=== PATIENT | female | born 1970 | race Caucasian/White ===

== ENCOUNTER 2022-02-25 13:05 | Inpatient (IN) | payer MEDICARE, BC ==
[~2022-02-25] VITALS: Ht 160 cm; Wt 103.0 kg
[2022-02-25] MEDS ORDERED: methylPREDNISolone SOD SUCC 125 MG/2ML VIAL ONE (13:29)
[2022-02-25] MEDS ORDERED: IPRATROPIUM NEB FS 0.5 MG/2.5 ML AMPUL.NEB NEB ONE (13:30)
[2022-02-25] MEDS ORDERED: methylPREDNISolone SOD SUCC 125 MG/2ML VIAL IV ONE (13:30)
[2022-02-25] MEDS ORDERED: ALBUTEROL FS 2.5 MG/3 ML VIAL.NEB CONTNEB ONE (13:30)
--- NOTE | 2022-02-25 13:50 | NUR ---
Blood sample obtained by lab
--- NOTE | 2022-02-25 13:50 | NUR ---
COVID and MRSA swab obtained and placed in drop-off box
[2022-02-25] MEDS ORDERED: ALBUTEROL FS 2.5 MG/3 ML VIAL.NEB ONE (13:54)
[2022-02-25] MEDS ORDERED: IPRATROPIUM NEB FS 0.5 MG/2.5 ML AMPUL.NEB ONE (13:54)
[2022-02-25 13:57] LABS: BASOPHILS % (AUTO) 0.3 % (0.0-2.0); EOSINOPHILS % (AUTO) 1.4 % (0.0-6.0); HEMATOCRIT 28 % (33-45); LYMPHOCYTES # (AUTO) 0.8 K/uL (0.8-4.8); LYMPHOCYTES % (AUTO) 15.9 % (20.0-44.0); MEAN CORPUSCULAR HGB CONC 32 g/dl (31.0-36.0); MEAN CORPUSCULAR VOLUME 77 fL (82-100); MONOCYTES # (AUTO) 0.4 K/uL (0.1-1.30); NEUTROPHILS # (AUTO) 3.9 K/uL (1.8-8.9); NEUTROPHILS % (AUTO) 74.4 % (43.0-81.0); PLATELET COUNT (AUTO) 231 K/uL (150-450); WHITE BLOOD COUNT (AUTO) 5.3 K/uL (4.3-11.0)
[2022-02-25 14:07] LABS: CALCIUM, SERUM 8.8 mg/dL (8.5-10.1); CARBON DIOXIDE 27 mmol/L (21-32); CHLORIDE 102 mmol/L (98-107); CREATININE 1.2 mg/dL (0.6-1.3); GLUCOSE 107 mg/dL (74-106); SODIUM SERUM 137 mmol/L (136-145); UREA NITROGEN, BLOOD 26 mg/dL (7-18)
[2022-02-25 14:08] LABS: ABG PH 7.377 (7.350-7.450); ABG PO2 76.4 mmHg (75.0-100.0); COHb 0.6 % (0.5-1.5); MetHb 0.3 % (0.0-1.5); O2Hb 93.6 % (94.0-97.0); SITE, ABG Right Radial; VENT MODE, BG 2LNC
[2022-02-25 14:19] LABS: ALANINE AMINOTRANSFERASE 55 U/L (12-78); ALBUMIN 3.1 g/dL (3.4-5.0); ALKALINE PHOSPHATASE 138 U/L (46-116); ASPARTATE AMINOTRANSFERASE 88 U/L (15-37); BILIRUBIN,DIRECT 0.2 mg/dL (0.0-0.2); BILIRUBIN,TOTAL 0.4 mg/dL (0.2-1.0); TOTAL PROTEIN, SERUM 6.8 g/dL (6.4-8.2)
[2022-02-25] MEDS ORDERED: FLUO40CA49 PO (14:35)
[2022-02-25] MEDS ORDERED: BREX2TAB PO (14:35)
[2022-02-25] MEDS ORDERED: TOPI100T38 PO (14:35)
[2022-02-25] MEDS ORDERED: HYDR-3980 PO (14:35)
[2022-02-25] MEDS ORDERED: QUET100T PO (14:35)
[2022-02-25] MEDS ORDERED: ALPR0.255 PO (14:35)
[2022-02-25] MEDS ORDERED: TEMA30CA PO (14:35)
[2022-02-25] MEDS ORDERED: GABA300C PO (14:35)
[2022-02-25] MEDS ORDERED: BUPR200T3 PO (14:35)
--- NOTE | 2022-02-25 15:00 | NUR ---
[facility] CALLED SALES ASSISTANTS AND SALESPERSONS PAGED.
--- NOTE | 2022-02-25 15:25 | NUR ---
Influenza nasal swab obtained and placed in drop off box
[2022-02-25] MEDS ORDERED: CT SWABBABLE VALVE TRANS SET 1 EA INFUS.SET MC ONE (16:25)
[2022-02-25] MEDS ORDERED: IV NS 0.9% 250 ML IV ONE (16:25)
[2022-02-25] MEDS ORDERED: IOHEXOL-350 100 ML VIAL IV ONE (16:25)
[2022-02-25] MEDS ORDERED: ONDANSETRON HCL/PF 4 MG/2 ML VIAL IVP PRN (17:00)
[2022-02-25] MEDS ORDERED: AZITHROMYCIN 500 MG in IV D5W 250 ML IV SCH (17:00)
[2022-02-25] MEDS ORDERED: ACETAMINOPHEN 325 MG TABLET PO PRN (17:00)
[2022-02-25] MEDS ORDERED: IPRATROPIUM NEB FS 0.5 MG/2.5 ML AMPUL.NEB NEB SCH (19:46)
--- NOTE | 2022-02-25 20:16 | NUR ---
REPORT GIVEN TO CHITO SNOW
--- NOTE | 2022-02-25 20:25 | NUR ---
RN ADMITTING NOTE PATIENT RECEIVED FROM [facility] VIA [facility]. JAMES (FRIEND) AT BEDSIDE. PATIENT IS ALERT AND ORIENTED X 4, ABLE TO MAKE NEEDS KNOWN, PATIENT STATES SHE IS REALLY SLEEPY. PATIENT RECEIVED ON 6 LPM VIA NASAL CANNULA SATTING 96%. PATIENT NOTED TO HAVE PRODUCTIVE COUGH AND SOB. COARSE LUNG SOUNDS AND WHEEZING ON THE L UPPER LOBE HEARD UPON AUSCULTATION. PATIENT DOES NOT REPORT ANY PAIN AT THIS TIME. PATIENT HAS A JORGE MIDLINE 18 G FLUSHING WELL. PATIENT STATED THAT SHE WOULD LIKE TO BE FULL CODE. COVID VACCINE RECEIVED X 2 WELL FLU SHOT THIS SEASON. BLE EDEMA +1 NOTED. TELE MONITOR READS SR 68 BPM. SKIN ASSESSED, SCRATCHES FROM HER CAT NOTED. ORIENTED PATIENT TO ROOM, RN, AND METAL CUT OFF SAW TENDER. BELONGINGS INVENTORIED. SAFETY MEASURES IN PLACE: BED LOCKED AND IN LOWEST POSITION, CALL LIGHT WITHIN REACH, SIDE RAILS UP. WILL MONITOR PATIENT CLOSELY.
[2022-02-25 20:30] VITALS: BP 140/78
[2022-02-25] MEDS: ENOXAPARIN SODIUM 40 MG/0.4 ML DISP.SYRIN SQ SCH (21:06)
[2022-02-25] MEDS: methylPREDNISolone SOD SUCC 40 MG/ML VIAL IV SCH (21:06)
[2022-02-25] MEDS ORDERED: AZITHROMYCIN 500 MG VIAL ONE (21:11)
[2022-02-25] MEDS ORDERED: IPRATROPIUM NEB FS 0.5 MG/2.5 ML AMPUL.NEB NEB PRN ×2 (21:30→22:00)
[2022-02-25] MEDS ORDERED: CEFTRIAXONE 1 G VIAL ONE (23:01)
[2022-02-25] MEDS: CEFTRIAXONE 1 G in IV D5W 50 ML IV SCH (23:18)
[2022-02-25] MEDS: IPRATROPIUM NEB FS 0.5 MG/2.5 ML AMPUL.NEB NEB SCH (23:41)
[2022-02-26] VITALS: BP 108/79
[2022-02-26] MEDS: HYDROCODONE/APAP 10/325MG TABLET PO PRN ×3 (01:00→18:56)
--- NOTE | 2022-02-26 01:00 | NUR ---
RN NOTE PATIENT COMPLAINING OF 10/10 PAIN ON JEANETH LOWER EXT AND MIGRAINE, SHE SAYS THAT SHE TAKES NORCO 10-325 TAB FOR HER PAIN. INFORMED MD CARMELA ORDERED NORCO 10-325 TAB Q6 HR FOR SEVERE PAIN. ORDER READ BACK AND CARRIED OUT. ADMINISTERED NORCO 10/325 1 TAB TO PATIENT FOR HER PAIN AND MIGRAINE.
[2022-02-26 04:00] VITALS: BP 116/85
[2022-02-26] MEDS: methylPREDNISolone SOD SUCC 40 MG/ML VIAL IV SCH ×3 (06:16→20:13)
[2022-02-26 06:31] LABS: HEMATOCRIT 28 % (33-45); HEMOGLOBIN 8.8 g/dL (11.5-14.8); LYMPHOCYTES # (AUTO) 0.6 K/uL (0.8-4.8); LYMPHOCYTES % (AUTO) 8.7 % (20.0-44.0); MEAN CORPUSCULAR HGB CONC 32 g/dl (31.0-36.0); MEAN CORPUSCULAR VOLUME 77 fL (82-100); MONOCYTES # (AUTO) 0.2 K/uL (0.1-1.30); MONOCYTES % (AUTO) 3.4 % (2.0-12.0); NEUTROPHILS # (AUTO) 5.6 K/uL (1.8-8.9); NEUTROPHILS % (AUTO) 87.9 % (43.0-81.0); PLATELET COUNT (AUTO) 221 K/uL (150-450); RED BLOOD CELL COUNT(AUTO) 3.57 MIL/uL (4.0-5.2); WHITE BLOOD COUNT (AUTO) 6.3 K/uL (4.3-11.0)
[2022-02-26 06:58] LABS: CALCIUM, SERUM 8.8 mg/dL (8.5-10.1); CREATININE 0.8 mg/dL (0.6-1.3); MAGNESIUM 2.1 mg/dL (1.8-2.4); POTASSIUM 4.6 mmol/L (3.5-5.1)
[2022-02-26 07:00] VITALS: BP 126/84
--- NOTE | 2022-02-26 07:36 | NUR ---
RN CLOSING NOTE PATIENT NOW ON 4LPM VIA NC TOLERATING WELL AT 96%. PATIENT DOES NOT REPORT ANY PAIN. PATIENT NOT IN ANY APPARENT DISTRESS. SAFETY MEASURES KEPT IN PLACE. ENDORSED TO DAY SHIFT NURSE FOR CONI.
--- NOTE | 2022-02-26 07:38 | NUR ---
RN OPENING NOTE RECEIVED PATIENT IN BED, AWAKE, A/O X4, VERBALLY RESPONSIVE. NO SIGNS OF ACUTE DISTRESS NOTED. ON O2 @ 4LPM VIA N/C, NO SOB NOTED, BREATHING EVEN AND UNLABORED. ON TELE MONITOR SHOWING SINUS RHYTHM, HR @ 85. DENIES ANY PAIN AT THIS TIME. WITH MIDLINE ON RIGHT UPPER ARM, INTACT AND PATENT, SALINE LOCKED. SAFETY MEASURE IN PLACE. BED IN LOWEST AND LOCKED POSITION, SIDE RAILS UP X2, CALL LIGHT PLACED WITHIN EASY REACH. WILL CONTINUE TO MONITOR PATIENT.
[2022-02-26] MEDS: IPRATROPIUM NEB FS 0.5 MG/2.5 ML AMPUL.NEB NEB SCH ×4 (08:10→20:01)
[2022-02-26] MEDS: CEFTRIAXONE 1 G in IV D5W 50 ML IV SCH ×2 (09:10→21:58)
[2022-02-26] MEDS ORDERED: FUROSEMIDE 20 MG/2 ML VIAL IV STA (11:31)
[2022-02-26 12:00] VITALS: BP 148/63
[2022-02-26] MEDS ORDERED: TEMAZEPAM 15 MG CAPSULE PO PRN (12:00)
[2022-02-26] MEDS ORDERED: ALPRAZOLAM 0.25 MG TABLET PO PRN (12:00)
[2022-02-26] MEDS ORDERED: Medication Not On Formulary EA (Brexpiprazole (Rexulti) 2 MG) PO SCH (12:00)
[2022-02-26] MEDS: GABAPENTIN 300 MG CAPSULE PO SCH ×3 (12:29→20:13)
[2022-02-26] MEDS: QUETIAPINE FUMARATE 100 MG TABLET PO SCH (12:29)
[2022-02-26] MEDS: TOPIRAMATE 100 MG TABLET PO SCH (12:29)
[2022-02-26] MEDS: FLUOXETINE HCL 20 MG CAPSULE PO SCH (12:37)
[2022-02-26 12:39] LABS: IRON, SERUM 14 ug/dl (50-175); TOTAL IRON BINDING CAPACITY 421 ug/dl (250-450)
[2022-02-26 12:52] LABS: FERRITIN 39 ng/mL (8-388)
--- NOTE | 2022-02-26 17:08 | NUR ---
RN NOTE PATIENT NOTED WITH PRODUCTIVE COUGH. HANS VERA MADE AWARE. RECEIVED NEW ORDER FOR ROBITUSSIN, ORDER NOTED AND CARRIED OUT.
[2022-02-26] MEDS ORDERED: GUAIFENESIN/CODEINE 10 ML UDC PO PRN (17:30)
[2022-02-26] MEDS ORDERED: GUAIFENESIN 300 MG/15 ML UDC PO PRN (17:30)
--- NOTE | 2022-02-26 18:55 | NUR ---
RN CLOSING NOTE PATIENT IN BED, AWAKE, A/O X4, VERBALLY RESPONSIVE. NO SIGNS OF ACUTE DISTRESS NOTED. REMAINS ON O2 @ 3LPM VIA N/C, NO SOB NOTED, BREATHING EVEN AND UNLABORED. STILL NOTED WITH WHEEZING. ON TELE MONITOR SHOWING SINUS RHYTHM/SINUS TACH , HR 80-110. MEDICATED WITH NORCO 10/325 MG ORDERED. MIDLINE ON RIGHT UPPER ARM, INTACT AND PATENT, SALINE LOCKED. SAFETY MEASURE IN PLACE. BED IN LOWEST AND LOCKED POSITION, SIDE RAILS UP X2, CALL LIGHT PLACED WITHIN EASY REACH. WILL ENDORSE TO NEXT SHIFT FOR CONI.
--- NOTE | 2022-02-26 19:18 | NUR ---
RN OPENING NOTE PATIENT IN BED, SITTING UP. PATIENT IS A/O X 4, ABLE TO MAKE NEEDS KNOWN. PATIENT ON 3LPM VIA NC, COUGH AND WHEEZING NOTED. TELE MONITOR READS ST 106 AT THIS TIME. JORGE MIDLINE 18 G PATENT AND INTACT, FLUSHING WELL. PATIENT DOES NOT REPORT ANY PAIN AT THIS TIME. SAFETY MEASURES IN PLACE: BED LOCKED AND IN LOWEST POSITION, CALL LIGHT WITHIN REACH, SIDE RIALS UP. WILL MONITOR PATIENT CLOSELY.
[2022-02-26 20:00] VITALS: BP 141/92
[2022-02-26] MEDS: AZITHROMYCIN 500 MG in IV D5W 250 ML IV SCH (20:10)
[2022-02-26] MEDS: ENOXAPARIN SODIUM 40 MG/0.4 ML DISP.SYRIN SQ SCH (20:13)
[2022-02-27] VITALS: BP 140/94
--- NOTE | 2022-02-27 | NUR ---
PATIENT ACCIDENTALLY PULLED OUT JORGE MIDLINE ACCESS. INSERTED R WRIST 22G, PATENT AND INTACT. REMINDED PATIENT TO BE MINDFUL OF THE IV ACCESS. TAPED IV WELL.
[2022-02-27 04:00] VITALS: BP 143/94
--- NOTE | 2022-02-27 04:00 | NUR ---
PATIENT TITRATED DOWN TO 2LPM 95-96% O2 SAT, TOLERATING WELL.
[2022-02-27] MEDS: methylPREDNISolone SOD SUCC 40 MG/ML VIAL IV SCH ×3 (04:56→20:07)
[2022-02-27 06:40] LABS: HEMATOCRIT 27 % (33-45); HEMOGLOBIN 8.7 g/dL (11.5-14.8); LYMPHOCYTES # (AUTO) 0.6 K/uL (0.8-4.8); LYMPHOCYTES % (AUTO) 10.7 % (20.0-44.0); MEAN CORPUSCULAR HGB CONC 32 g/dl (31.0-36.0); MEAN CORPUSCULAR VOLUME 76 fL (82-100); MONOCYTES # (AUTO) 0.3 K/uL (0.1-1.30); MONOCYTES % (AUTO) 5.7 % (2.0-12.0); NEUTROPHILS # (AUTO) 4.7 K/uL (1.8-8.9); NEUTROPHILS % (AUTO) 83.6 % (43.0-81.0); PLATELET COUNT (AUTO) 244 K/uL (150-450); RED BLOOD CELL COUNT(AUTO) 3.55 MIL/uL (4.0-5.2); WHITE BLOOD COUNT (AUTO) 5.6 K/uL (4.3-11.0)
--- NOTE | 2022-02-27 06:59 | NUR ---
RN CLOSING NOTE PATIENT IN BED, SLEEPING, EASILY ROUSED. PATIENT IS A/O X 4, ABLE TO MAKE NEEDS KNOWN. PATIENT ON 2LPM VIA NC, NO SOB AT THIS TIME, COUGHING PRESENT. PATIENT NEEDS TO BE REMINDED TO KEEP NC ON. TELE MONITOR READS SR 63 AT THIS TIME. R WRIST 22 G PATENT AND INTACT, FLUSHING WELL. PATIENT DOES NOT REPORT ANY PAIN AT THIS TIME. SAFETY MEASURES IN PLACE: BED LOCKED AND IN LOWEST POSITION, CALL LIGHT WITHIN REACH, SIDE RIALS UP. ALL NEEDS MET AND ATTENDED. ALL ORDERS CARRIED OUT. WILL ENDORSE TO DAY SHIFT NURSE FOR CONI.
[2022-02-27 07:22] LABS: CALCIUM, SERUM 8.8 mg/dL (8.5-10.1); CREATININE 0.8 mg/dL (0.6-1.3); MAGNESIUM 2.3 mg/dL (1.8-2.4); PHOSPHORUS 3.5 mg/dL (2.5-4.9); POTASSIUM 3.7 mmol/L (3.5-5.1)
--- NOTE | 2022-02-27 07:30 | NUR ---
WINE FERMENTER OPENING NOTES RECEIVED PATIENT ON BED RESTING AND A/O X 4, ABLE TO MAKE NEEDS KNOWN. PATIENT ON 2LPM VIA NC TOLERATING WELL. NO SOB NOTED. NOT IN DISTRESS. WITH NO COMPLAINTS OF PAIN OR DISCOMFORT AT THIS TIME. ON TELE MONITOR CURRENTLY READING AT SINUS TACHYCARDIA AT 102BPM. WITH IV ACCESS AT JORGE MIDLINE G18 PATENT AND INTACT, FLUSHING WELL. SAFETY MEASURES IN PLACE: BED LOCKED AND IN LOWEST POSITION, CALL LIGHT WITHIN REACH, SIDE RAILS UP. WILL CONTINUE TO MONITOR.
[2022-02-27 08:00] VITALS: BP 137/89
[2022-02-27] MEDS: IPRATROPIUM NEB FS 0.5 MG/2.5 ML AMPUL.NEB NEB SCH ×4 (08:13→19:56)
[2022-02-27] MEDS: TOPIRAMATE 100 MG TABLET PO SCH (08:41)
[2022-02-27] MEDS: FLUOXETINE HCL 20 MG CAPSULE PO SCH (08:41)
[2022-02-27] MEDS: buPROPion SR 100 MG TABLET.ER PO SCH (08:41)
[2022-02-27] MEDS: GABAPENTIN 300 MG CAPSULE PO SCH ×4 (08:41→20:07)
[2022-02-27] MEDS: QUETIAPINE FUMARATE 100 MG TABLET PO SCH (08:42)
[2022-02-27 12:07] VITALS: BP 140/88
[2022-02-27] MEDS: HYDROCODONE/APAP 10/325MG TABLET PO PRN ×2 (12:50→20:10)
[2022-02-27] MEDS ORDERED: SOD FERRIC GLUC 125 MG in IV NS 0.9% 100 ML IV SCH (14:00)
[2022-02-27 16:00] VITALS: BP 146/91
--- NOTE | 2022-02-27 19:15 | NUR ---
RN OPENING NOTE PATIENT IN BED, SITTING UP. PATIENT IS A/O X 4, ABLE TO MAKE NEEDS KNOWN. PATIENT ON 2LPM VIA NC, TOELRATING WELL, NO SOB NOTED AT THIS TIME. PATIENT COMPLAINING OF PAIN WHEN FLUSHING R WRIST 22 G IV ACCESS. REDNESS NOTED AROUND THE IV SITE. WILL INSERT NEW IV ACCESS. PATIENT ALSO REPORTS A MIGRAINE 10/10 ON THE PAIN SCALE. WILL MANAGE PAIN APPROPRIATELY. SAFETY MEASURES IN PLACE: BED LOCKED AND IN LOWEST POSITION, CALL LIGHT WITHIN REACH, SIDE RIALS UP. WILL MONITOR PATIENT CLOSELY.
--- NOTE | 2022-02-27 19:30 | NUR ---
MS RN CLOSING NOTES PATIENT ON BED RESTING AND A/O X 4, ABLE TO MAKE NEEDS KNOWN. PATIENT ON 2LPM VIA NC TOLERATING WELL. NO SOB NOTED. NOT IN DISTRESS. WITH NO COMPLAINTS OF PAIN OR DISCOMFORT AT THIS TIME. WITH IV ACCESS AT RIGHT WRIST G22 SALINE LOCKED, PATENT AND INTACT, FLUSHING WELL. DUE MEDS GIVEN. SAFETY MEASURES IN PLACE: BED LOCKED AND IN LOWEST POSITION, CALL LIGHT WITHIN REACH, SIDE RAILS UP. WILL ENDORSE TO NEXT SHIFT FOR CONI.
[2022-02-27 20:00] VITALS: BP 125/66
--- NOTE | 2022-02-27 20:05 | NUR ---
RFA 22 G ESTABLISHED, PATENT AND INTACT, FLUSHING WELL
[2022-02-27] MEDS: AZITHROMYCIN 500 MG in IV D5W 250 ML IV SCH (20:07)
[2022-02-27] MEDS: ENOXAPARIN SODIUM 40 MG/0.4 ML DISP.SYRIN SQ SCH (20:08)
--- NOTE | 2022-02-27 20:10 | NUR ---
ADMINISTERED NORCO 10-325 TAB TO PATIENT FOR MIGRAINE 01/08. WILL REASSESS PAIN AND MED EFFECTIVENESS AT A LATER TIME
[2022-02-27] MEDS: CEFTRIAXONE 1 G in IV D5W 50 ML IV SCH (21:19)
[2022-02-28] MEDS: methylPREDNISolone SOD SUCC 40 MG/ML VIAL IV SCH (04:44)
[2022-02-28] MEDS: HYDROCODONE/APAP 10/325MG TABLET PO PRN (04:45)
--- NOTE | 2022-02-28 04:45 | NUR ---
ADMINISTERED NORCO 10-325 TAB TO PATIENT FOR MIGRAINE 01/08. WILL REASSESS PAIN AND MED EFFECTIVENESS AT A LATER TIME
[2022-02-28 06:39] LABS: HEMATOCRIT 28 % (33-45); HEMOGLOBIN 8.9 g/dL (11.5-14.8); LYMPHOCYTES # (AUTO) 0.6 K/uL (0.8-4.8); LYMPHOCYTES % (AUTO) 11.2 % (20.0-44.0); MEAN CORPUSCULAR HGB CONC 32 g/dl (31.0-36.0); MEAN CORPUSCULAR VOLUME 78 fL (82-100); MONOCYTES # (AUTO) 0.2 K/uL (0.1-1.30); MONOCYTES % (AUTO) 4.2 % (2.0-12.0); NEUTROPHILS # (AUTO) 4.8 K/uL (1.8-8.9); NEUTROPHILS % (AUTO) 84.6 % (43.0-81.0); PLATELET COUNT (AUTO) 266 K/uL (150-450); RED BLOOD CELL COUNT(AUTO) 3.55 MIL/uL (4.0-5.2); WHITE BLOOD COUNT (AUTO) 5.6 K/uL (4.3-11.0)
--- NOTE | 2022-02-28 06:56 | NUR ---
RN CLOSING NOTE PATIENT IN BED, AWAKE. PATIENT IS A/O X 4, ABLE TO MAKE NEEDS KNOWN. PATIENT ON 2LPM VIA NC, NO SOB AT THIS TIME, TOLERATING WELL. RFA 22 G PATENT AND INTACT, FLUSHING WELL. PAIN MANAGED WITH NORCO 10-325 X 2. SAFETY MEASURES IN PLACE: BED LOCKED AND IN LOWEST POSITION, CALL LIGHT WITHIN REACH, SIDE RIALS UP. ALL NEEDS MET AND ATTENDED. ALL ORDERS CARRIED OUT. WILL ENDORSE TO DAY SHIFT NURSE FOR CONI.
[2022-02-28 06:58] LABS: CALCIUM, SERUM 8.6 mg/dL (8.5-10.1); MAGNESIUM 2.3 mg/dL (1.8-2.4); PHOSPHORUS 3.5 mg/dL (2.5-4.9); POTASSIUM 3.7 mmol/L (3.5-5.1)
--- NOTE | 2022-02-28 07:35 | NUR ---
RN OPENING NOTE PATIENT IN BED, SITTING UP. PATIENT IS A/O X 4, ABLE TO MAKE NEEDS KNOWN. PATIENT ON 2LPM VIA NC, TOELRATING WELL, NO SOB NOTED AT THIS TIME. NO C/O OF ANY PAIN OR DISCOMFORT AT THIS TIME. WILL MANAGE PAIN APPROPRIATELY. SAFETY MEASURES IN PLACE: BED LOCKED AND IN LOWEST POSITION, CALL LIGHT WITHIN REACH, SIDE RIALS UP. WILL MONITOR PATIENT CLOSELY.
[2022-02-28] MEDS: IPRATROPIUM NEB FS 0.5 MG/2.5 ML AMPUL.NEB NEB SCH ×2 (07:40→11:12)
[2022-02-28 08:00] VITALS: BP 138/79
[2022-02-28] MEDS: GABAPENTIN 300 MG CAPSULE PO SCH (09:26)
[2022-02-28] MEDS: TOPIRAMATE 100 MG TABLET PO SCH (09:26)
[2022-02-28] MEDS: QUETIAPINE FUMARATE 100 MG TABLET PO SCH (09:26)
[2022-02-28] MEDS: FLUOXETINE HCL 20 MG CAPSULE PO SCH (09:27)
[2022-02-28] MEDS: buPROPion SR 100 MG TABLET.ER PO SCH (09:57)
[2022-02-28] MEDS ORDERED: LEVO500T90 PO (12:53)
[2022-02-28] MEDS ORDERED: IRON SUCROSE COMPLEX 200 MG in IV NS 0.9% 100 ML IV SCH (14:00)
--- NOTE | 2022-02-28 15:29 | NUR ---
DISCHARGED NOTE PATIENT DISCHARGED TO HOME ACCOMPANIED BY A FRIEND IN A STABLE CONDITION. A/O X4. ON RA, TOLERATING WELL WITH 95% SPO2. VITALS TAKEN, STABLE AND RECORDED. PATIENT REFUSED TO TAKE PICTURES OF OLD WOUND. ALL BELONGINGS ACCOUNTED TO PATIENT, DENIES ANY PAIN OR DISCOMFORT. DISCHARGED INSTRUCTION RELAYED TO PATIENT. IV ACCESS REMOVED. LEFT UNIT VIA WHEELCHAIR. ASSISTED TO CAR.
[2022-02-28 21:06] LABS: *MYCOPLASMA PNEUMONIAE IgG 229 U/mL (0-99); *MYCOPLASMA PNEUMONIAE IgM <770 U/mL (0-769)
== END 2022-02-28 14:30 | disposition home or self-care (01) | DRG 193 ==
LOC: ER 13:07 → TELE 19:38 → MED 02-27 12:28
PROVIDERS: ADMIT Nurse Practitioner Acute Care; ATTEND Student in an Organized Health Care Education/Training Program
PROC: 05H533Z Insertion of Infusion Device into Right Subclavian Vein, Percutaneous Approach (ICD-10-PCS; principal; 2022-02-25)
PROC: B546ZZA Ultrasonography of Right Subclavian Vein, Guidance (ICD-10-PCS; 2022-02-25)
DX: J15.9 Unspecified bacterial pneumonia (principal); J96.01 Acute respiratory failure with hypoxia; J44.1 Chronic obstructive pulmonary disease with (acute) exacerbation; E44.1 Mild protein-calorie malnutrition; J44.0 Chronic obstructive pulmonary disease with (acute) lower respiratory infection; N17.9 Acute kidney failure, unspecified; D68.69 Other thrombophilia; Z68.41 Body mass index [BMI] 40.0-44.9, adult; I50.32 Chronic diastolic (congestive) heart failure; D64.9 Anemia, unspecified; E66.01 Morbid (severe) obesity due to excess calories; E88.09 Other disorders of plasma-protein metabolism, not elsewhere classified; F32.A Depression, unspecified; G47.33 Obstructive sleep apnea (adult) (pediatric); Z87.891 Personal history of nicotine dependence; F41.9 Anxiety disorder, unspecified; F39 Unspecified mood [affective] disorder; Z20.822 Contact with and (suspected) exposure to COVID-19
CPT/HCPCS: 36410; 36415; 36600; 71045-TC; 80048-TC; 80061-TC; 80076-TC; 82728-TC; 82803-TC; 83540-TC; 83735-TC; 83880; 84100-TC; 84484-TC; 85025-TC; 85378-TC; 86713; 86738; 87081-TC; 93307-TC; 93970-TC; 94799-TC; C9803; G0378; J0456; J0696; J1650; J1756; J1940; J2916; J2920; J2930; J7030; J7050; J7060; Q9967